=== PATIENT | female | born 1975 | race Caucasian/White ===

== ENCOUNTER 2024-06-23 21:52 | Emergency (ER) | payer OTHER, SELFPAY ==
--- NOTE | ~2024-06-23 | XR_ITS ---
EXAMINATION: XR knee RT 3V DATE: 06/23/2024 22:17 INDICATION: Right knee pain. Fall. TECHNIQUE: 3 views of right knee were obtained. COMPARISON: None. FINDINGS: Alignment is normal. No fracture. There is mild tricompartmental osteoarthritis. No knee harshal int effusion. IMPRESSION: 1. Mild right knee osteoarthritis. Reviewed, dictated and finalized at location A. [employer]
[2024-06-23 21:52] VITALS: BP 114/61; PULSE 97; RESP 16; TEMP 36.6; O2SAT 100
--- NOTE | 2024-06-23 22:08 | ED.FALL ---
HPI - Fall General Chief Complaint: Fall Stated Complaint: fall/dog bite Time Seen by Provider: 06/23/24 22:07 Source: patient and family Mode of arrival: ambulatory Limitations: no limitations History of Present Illness HPI Narrative: this is a 48-year-old female that presents after a fall causing bruising and pain to right anterior knee with no other injuries noted. Patient does have a 2-day-old puncture wound healing stage with surrounding erythema on her right calf area with no fever chills no shortness of breath no chest pain no nausea vomiting or abdominal pain. complaint: fall Onset (ago): day(s) Fall from: standing Place fall occurred: home Loss of consciousness: none Related Data Allergies Allergy/AdvReac Type Severity Reaction Status Date / Time Penicillins Allergy Intermediate Hives Verified 06/23/24 22:09 tramadol Allergy Intermediate Hives Verified 06/23/24 22:09 Review of Systems Review of Systems: All systems reviewed & are unremarkable except as noted in HPI and below PMFSH Past Medical History Medical History Patient denies medical problems Exam Const: General: healthy appearing Nutritional Appearance: well nourished Orientation/consciousness: patient oriented x3 Limitations: no limitations Resp: Effort & Inspection: normal respiratory effort Auscultation: clear to auscultation bilaterally Cardio: Rate: regular rate Rhythm: regular rhythm GI: GI Palp: Yes Soft to palpation Auscultation: normal bowel sounds Skin: Wounds: wounds noted Neuro: General: patient oriented x3, moves all extremities, no meningeal signs and no focal motor deficits Extrem: General: normal to inspection Other: tenderness with bruising and swelling anterior right knee Course Course Emergency Course: patient with puncture wounds triple antibiotic ointment applied and Bactrim p.o. 1 dose was administered in the ER, x-ray performed and reviewed. Critical Care Time Critical Care Time Critical Care Time: No Discharge Plan Discharge Clinical Impression: Puncture wound, Animal bite Knee strain Qualifiers: Encounter type: initial encounter Laterality: right Qualified Code(s): S86.911A - Strain of unspecified muscle(s) and tendon(s) at lower leg level, right leg, initial encounter Patient Disposition: Home, Self-Care Condition: Stable Instructions: Antibiotic Form, Animal Bite (ED), Knee Sprain (ED), Cellulitis (ED) Additional Instructions: advised to take medication as prescribed, can apply Neosporin daily x3 days to affected areas and follow with primary within 1 week for further evaluation and treatment. Patient Language: [place]an Prescriptions: New sulfamethoxazole-trimethoprim [Bactrim DS] 800-160 mg tablet 1 tablet PO Q12H Qty: 20 0RF Follow-up/Referrals: UNKNOWN,DOCTOR [Primary Care Provider] -
[2024-06-23] MEDS: SULFAMETHOXAZOLE/TRIMETHOPRIM 800/160 MG DS TABLET 1 TAB PO (22:35)
[2024-06-23] MEDS: NEOMYCIN/POLYMYXIN/BACITRACIN OINTMENT PACKET 1 PACKET TOPICAL (22:35)
[2024-06-23 23:00] VITALS: BP 112/63; PULSE 92; RESP 16; O2SAT 100
== END 2024-06-23 23:03 | disposition home or self-care (01) ==
LOC: CHSED 22:21
PROVIDERS: Emergency Provider Emergency Medicine
DX: S86.911A Strain of unspecified muscle(s) and tendon(s) at lower leg level, right leg, initial encounter (principal); S81.851A Open bite, right lower leg, initial encounter; W19.XXXA Unspecified fall, initial encounter; Y92.009 Unspecified place in unspecified non-institutional (private) residence as the place of occurrence of the external cause; W64.XXXA Exposure to other animate mechanical forces, initial encounter
CPT/HCPCS: 73562; 99283; A9270